=== PATIENT | female | born 1990 | race African-American/Black ===

== ENCOUNTER 2025-01-05 00:30 | Day surgery (SDC) | payer BC, SELFPAY ==
[2024-12-27 14:34] VITALS: BMI 27.8
--- NOTE | 2024-12-27 14:54 | PC.NURSE ---
Report to the Outpatient Waiting Room, entrance under the green pavilion located off [facility], at time _0600 on date _01/05/25 . Planned Procedure Time: _729 .? Time changes happen often and if your time is changed the preop area will call you the afternoon before. - You and your visitor will be asked to self-screen and do not enter if you have any COVID symptoms. Please call surgeon if you need to reschedule. - A mask is optional within the hospital at this time. Patients may have clear liquids (water, carbonated beverages, clear teas, apple juice) until *8 hours* prior to surgery with a maximum of 20 ounces. - No food from midnight until time of surgery and no smoking, or chewing tobacco (or any form of nicotine). No chewing gum, candy or mints. - Infants may have breast milk until 4 hours before surgery, infant formula 6 hours prior to surgery. - Children will be allowed to drink immediately following surgery.? If applicable, please bring a bottle or sippy cup to assist with drinking. Juice, water, soda, and popsicles are readily available.? For infants on formula, please bring formula the day of surgery.? Pacifiers are allowed. Take only the following medications with a SIP of water on the morning of surgery: _Birth control DO NOT STOP ANY OF YOUR OTHER PRESCRIPTION MEDICATIONS PRIOR TO SURGERY EXCEPT THE FOLLOWING Hold all vitamins and supplements for 3 days per anesthesiologist. Medications to discontinue per physician __N/A Date to take last dose Please no make-up, nail central african, hairspray, perfume, deodorant, or body powder the day of surgery.? No jewelry (including any body piercings) or valuables the day of surgery, leave them at home.? Please take a shower or bath the night before, or the morning of, surgery with an antibacterial soap.? Wear comfortable, loose fitting clothing.? Children are encouraged to wear pajamas. - Jewelry must be removed prior to entering the operating room.? Rings and piercings that are not removed may be cut off. - The hospital will not accept responsibility for valuables.? - Please leave all valuables, including medications, at home the day of surgery. If you are going home after surgery, a licensed drivers license examiner must drive you home.? - NO public transportation without another adult if you receive anesthesia. - We recommend that an adult stay with you for 24 hours following discharge. - We also recommend that you do not drive, make important decision, drink alcoholic beverages, or take any drugs that were not prescribed by your health care provider for at least 24 hours after your discharge time. For Pediatric surgeries, we recommend two adults accompany the child home. Follow any additional instructions given to you from your surgeon. Telephone instructions given to __Erasmo and asked if any additional questions and then verbalized understanding. Patient advised to call surgeon office or pre surgery nurse liaison [phone] if any additional questions.
[2025-01-05] VITALS (12 sets, daily range): BP systolic 101–148; BP diastolic 60–86; PULSE 72–109; RESP 12–17; TEMP 36.3–36.5; O2SAT 99–100
--- OUTSIDE RECORDS SUMMARY | 2025-01-05 00:33 | XMS_ITS | Clinical Summary ---
Author Organization [facility] Address [address] [place] [address] Care Team Providers Care Machinist First Class Name Role Phone Jacque Gay Primary Care Provider [phone] Allergies No known active allergies Medications loratadine (CLARITIN) 10 MG tabletIndications: Seasonal allergies Take 1 tablet (10 mg total) by mouth daily. 90 tablet 3 3 Active Cholecalciferol (D3 SUPER STRENGTH) 50 MCG (1999 UT) CapIndications:Low vitamin D level Take 1 capsule by mouth daily. 30 capsule 3 4 Active ibuprofen (MOTRIN) 600 MG tabletIndications: Menstrual cramps Take 1 tablet (600 mg total) by mouth every 6 (six) hours as needed for Pain. 60 tablet 1 4 Active montelukast (SINGULAIR) 10 MG tabletIndications: Seasonal allergies Take 1 tablet (10 mg total) by mouth nightly at bedtime. 90 tablet 3 4 Active busPIRone (BUSPAR) 10 MG tabletIndications: Anxiety Take 1 tablet (10 mg total) by mouth 2 (two) times daily. 60 tablet 2 5 Active lisdexamfetamine (VYVANSE) 40 MG capsuleIndications :Attention deficit hyperactivity disorder (ADHD), combined type Take 1 capsule (40 mg total) by mouth every morning. Please fill Generic Mylan 30 capsule 5 Active lisdexamfetamine (VYVANSE) 30 MG capsuleIndications :Attention deficit hyperactivity disorder (ADHD), combined type Take 1 capsule (30 mg total) by mouth every morning. Please fill Generic Mylan 30 capsule Active Active Problems Problem Noted Date Diagnosed Date Iron deficiency anemia due to chronic blood loss 02/10/2024 Normal [facility] and delivery ([facility]) 09/03/2018 Echogenic bowel of fetus 09/14/2012 Overview (05/20/2019): Overview: IMO Update 07/19/2016 Resolved Problems Problem Noted Date Diagnosed Date Resolved Date Family history of Down syndrome 09/14/2012 11/28/2021 Overview (05/20/2019): Overview: FOB's son Encounters Date Type Department Care Team Description 12/06/2024 Scan MG HEALTH INFO SRVCS Scanned, Doc [facility] 12/02/2024 11:40 AM CDT Office Visit [facility] Family and Sports Medicine [facility] [address] [place] [address] Jacque Gay APNP Medication (Refill meds) 12/02/2024 Travel 10/31/2024 11:34 AM CDT - 10/31/2024 11:59 PM CDT Hospital Encounter [facility] Mammography [facility] [place] [address] Jacque Gay APNP Discharge Disposition: Home or Self Care (Routine Discharge) 10/31/2024 Results Follow-Up [facility] Family [facility] Sports Medicine [facility] [address] [place] [address] Jacque Gay APNP MG SCREENING W SUDHA DEBORAH DIGI 10/31/2024 Travel from Last 3 Months Family History Medical History Relation Comments Diabetes Father Diabetes Paternal Grandmother Relation Status Comments Father Paternal Grandmother Social History Tobacco Use Types Packs/Day Years Used Date Smoking Tobacco: Former Cigarettes 0.3 10 2 008 - 2017 Smokeless Tobacco: Never Tobacco Cessation:Counseling Given: Yes Alcohol Use Standard Drinks/Week Comments Not Currently 0 (1 standard drink = 0.6 oz pur e alcohol) AUDIT-C Answer Date Recorded Frequency of Alcohol Consumption Never 09/03/2018 Average Number of Drinks Not on file 019 Frequency of Binge Drinking Not on file 08/18 PHQ-2 Answer Date Recorded Patient Health Questionnaire-2 Score 2 09/02/2024 Comments No Sex and Gender Information Value Date Recorded Sex Assigned at Female 06/08/2024 11:21 AM BIOMEDICAL TECHNICIAN Legal Sex Female 5:55 PM CDT Gender Identity Female 07/30/2021 1:52 PM CDT Sexual Orientation Straight 07/30/2021 1: 52 PM CDT Last Filed Vital Signs Vital Sign Reading Time Taken Comments Blood Pressure 124/88 12/02/2024 11:53 AM CDT Pulse 91 12/02/2024 11:53 AM CDT Temperature 36.3 C (97.3 F) 09/02/2024 10:23 AM CDT Respiratory Rate 16 12/02/2024 11:53 AM CDT Oxygen Saturation 98% 12/02/2024 11:53 AM CDT Inhaled Oxygen Concentration - - Weight 89.8 kg (198 lb) 12/02/2024 11:53 AM CDT Height 177.8 cm (5' 10) 12/02/2024 11:53 AM CDT Body Mass Index 28.41 12/02/2024 11:53 AM CDT Plan of Treatment Health Maintenance Due Date Last Done Comments Cervical Cancer Screening Pap Smear (Age 30 to 64) Every 3 Years 1989 DTaP, Tdap and Td Vaccines (1 - Tdap) 2008 Hepatitis B Vaccines (1 of 3 - 19+ 3-dose series) 2008 HPV Vaccines (1 - 3-dose SCDM series) 2016 Cervical Cancer Screening Pap with HPV Testing (Age 30 to 64) Every 5 Years 2019 Cervical Cancer Screening with HPV 2019 COVID-19 Vaccine ( season) 2024 11/05/2020 Annual Physical 09/02/2025 09/02/2024, 08/19, 08/05/2022, Additional history exists Hepatitis C Completed 07/31/2021 PHQ-2 (Physician Cahto) Completed 09/02/2024 Meningococcal B Vaccine Aged Out No l onger eligible based on patient's age to complete this topic Meningococcal Vaccine Aged Out No mamta tiffany eligible based on patient's age to complete this topic Pneumococcal Vaccine: Pediatrics (0 to 5 Years) and At-Risk Patients (6 to 49 Years) Aged Out No longer eligible based on patient's age to complete this topic RSV Immunizations Under 20 Months Aged Out No longer eligible based on patient's age to complete this topic Procedures Procedure Name Priority Date/Time Associated Diagnosis Comments MG SCREENING W SUDHA DEBORAH DIGI Routine 10/31/2024 12:04 PM CDT Preop examination Encounter for screening mammogram for malignant neoplasm of breast HEPATITIS C ANTIBODY Routine 07/31/2021 9:00 AM CDT Need for hepatitis C screening test from Last 3 Months or Most Recently Relevant to Health Maintenance Results * MG SCREENING W SUDHA DEBORAH DIGI (10/31/2024 12:04 PM CDT) Anatomical Region Laterality Modality Breast Bilateral Mammography 10/31/2024 12:1 8 PM CDT Impressions 10/31/2024 12:19 PM CDT ===== IMPRESSION: ===== 1. Stable mammographic appearance with no new findings to suggest malignancy in either breast. Assessment: ACR BI-RADS 2 - BENIGN FINDING(S) Recommendation: 1:Routine Screening Bilateral Comments: Ordered By: JACQUE GAY Interpreted By: Zana Alfonso MD, 10/31/2024 12:18 PM Narrative 10/31/2024 12:19 PM CDT [facility] [address] [place] [address] Examination: Digital bilateral screening mammogram with 3D Tomosynthesis Exam Date/Time: 10/31/2024 11:50 AM Reason For Exam: screening/preoperative breast reduction surgery. No prior breast procedures. No personal or family history of breast cancer. No current complaints. Comparison: Mammograms from 06/04/2023 01/27/2022 Technique: Digital screening mammography of both breasts was performed in addition to 3-D Tomosynthesis technique. This study was read with the assistance of a computer-aided detection system. Tissue density: There are scattered areas of fibroglandular density. Findings: Stable overall mass in the upper outer right breast from multiple prior exams. Benign appearing intramammary lymph node on the left. No suspicious interval change in parenchymal pattern from the prior studies. There is no new focal asymmetry, dominant mass lesion, area of skin thickening, or cluster of suspicious appearing calcifications in either breast to suggest malignancy. Jacque [facility] Final Result * HEPATITIS C ANTIBODY (07/31/2021 9:00 AM CDT) HEPATITIS C AB NON-REACTI VE NON-REACT DONATO 07/31/2021 7:12 PM CDT [facility] Comment: ANTIBODIES TO HCV NOT DETECTED. DOES NOT EXCLUDE THE POSSIBILITY OF EXPOSURE TO HCV. 07/31/2021 9:00 AM CDT Jacque Victor Hugo [facility] Final Result [facility] [address] [place] [id number], [id number] from Last 3 Months or Most Recently Relevant to Health Maintenance Insurance [facility] Care Teams Machinist First Class Relationship Specialty Start Date End Date Jacque Gay APNP [address] [place] [address] PCP - General NURSE PRACTITIONER 05/20/19
--- OUTSIDE RECORDS SUMMARY | 2025-01-05 00:33 | XMS_ITS | Clinical Summary ---
Author Organization [facility] Address [address] [place] [address] Care Team Providers Care Crimper Assembler Name Role Phone Jacque Gay APRN, CNP Primary Care Provider Mendez Cantor MD Unavailable Allergies No known active allergies Medications Lisdexamfetamin e Dimesylate 40 MG Capsule Take 40 mg by mouth. 10/14/2023 Active Cholecalciferol (D3 Super Strength) 2000 UNIT Capsule Take 1 Capsule by mouth daily. 09/08/2023 Active ibuprofen (MOTRIN) 600 MG Tablet 09/08/2023 Active montelukast (SINGULAIR) 10 MG Tablet Take 10 mg by mouth every evening. Active Drospirenone-Es tetrol (Nextstellis) 3-14.2 MG Tablet Take 1 Tablet by mouth daily. 01/27/2024 Active Active Problems Problem Noted Date Diagnosed Date Iron deficiency anemia due to chronic blood loss 02/10/2024 Encounters Date Type Department Care Team Description 12/06/2024 9:00 AM CDT Office Visit [facility] [address] [phone] Marcela Park APRN, CNP Iron deficiency anemia due to chronic blood loss (Primary Dx) 12/06/2024 8:45 AM CDT Lab [facility] [address] [address] Lab, Cc [place] Iron deficiency anemia due to chronic blood loss 12/06/2024 Travel from Last 3 Months Immunizations Immunization Administration Dates Next Due Covid-19 Vaccine, Vector-nr, Rs-ad26, Pf, 0.5 Ml ([employer]) 11/05/2020 Family History Medical History Relation Name Comments Diabetes Father Relation Name Status Comments Father Social History Tobacco Use Types Packs/Day Years Used Date Smoking Tobacco: Former Cigarettes 0.5 10 2017 Smokeless Tobacco: Never Tobacco Cessation:Counseling Given: Not Answered Alcohol Use Standard Drinks/Week Comments Not Currently 0 (1 standard drink = 0.6 oz pur e alcohol) Comments Unknown Sex and Gender Information Value Date Recorded Sex Assigned at Not on file Legal Sex Female 2:26 PM BOOK RETAILER Gender Identity Not on file Sexual Orientation Not on file Last Filed Vital Signs Vital Sign Reading Time Taken Comments Blood Pressure 118/74 12/06/2024 9:08 AM CDT Pulse 103 12/06/2024 9:08 AM CDT Temperature 36.8 C (98.2 F) 12/06/2024 9:08 AM CDT Respiratory Rate 20 12/06/2024 9:08 AM CDT Oxygen Saturation 97% 12/06/2024 9:08 AM CDT Inhaled Oxygen Concentration - - Weight 92.9 kg (204 lb 14.4 oz) 12/06/2024 9:08 AM CDT Height 177.8 cm (5' 10) 12/06/2024 9:08 AM CDT Body Mass Index 29.4 12/06/2024 9:08 AM CDT Plan of Treatment Upcoming Encounters Date Type Department Care Team (Late st Contact Info) Description 04/04/2025 8:30 AM BOOK RETAILER Lab [facility] [address] [phone] Lab, Cc [facility] 04/04/2025 8:45 AM BOOK RETAILER Office Visit [facility] [address] [phone] Mendez Cantor MD [address] [place] [address] [phone] Health Maintenance Due Date Last Done Comments TdaP Immunization 1989 Hepatitis B Immunization (1 of 3 - 19+ 3-dose series) 2008 Pap Smear 2010 Human Papillomavirus (HPV) Immunization (1 - 3-dose SCDM series) 2016 Cervical Cancer Screening (CCS) 2019 HPV/Cotest 2019 Influenza Immunization (#1) 2024 SARS-COV-2 Immunization ( season) 2024 11/05/2020 Respiratory Syncytial Virus (RSV) Immunization (Adult) (1 - 1-dose 75+ series) 2064 Hepatitis C Virus (HCV) Screening Completed 022 Meningococcal Immunization (ACWY) Aged Out No longer eligible based on patient's age to complete this topic Pneumococcal Immunization Combined Aged Out No longer eligible based on patient's age to complete this topic Rotavirus Immunization Aged Out No lo nger eligible based on patient's age to complete this topic Procedures Procedure Name Priority Date/Time Associated Diagnosis Comments CBC WITH AUTO DIFF OH Routine 12/06/2024 8:55 AM CDT CMP (COMPREHENSIVE METABOLIC PANEL) Routine 12/06/2024 8:55 AM CDT Iron deficiency anemia due to chronic blood loss IRON W/ IRON BINDING CAPACITY OH Routine 12/06/2024 8:55 AM CDT Iron deficiency anemia due to chronic blood loss FERRITIN Routine 12/06/2024 8:55 AM CDT Iron deficiency anemia due to chronic blood loss from Last 3 Months Results * IRON W/ IRON BINDING CAPACITY OH (12/06/2024 8:55 AM CDT) IRON 78 50 - 212 ug/dL [facility] UIBC 236 155 - 355 ug/dL [facility] [employer] TIBC 314 261 - 478 ug/dl [facility] % Saturation 25 20 - 50 % [facility] 12/06/2024 8:55 AM CDT Narrative [facility] - 12/06/2024 9:39 AM CDT Release to patient->Immediate Marcela Park SINGE MACHINE OPERATOR, FRAME STRIPPER LAB SEND OUTS Final Result [facility] [place] [place] [address] [place] [address], * (ABNORMAL) CBC WITH AUTO DIFF [place] (12/06/2024 8:55 AM CDT) WBC 5.7 4.0 - 10.0 10*3/uL [facility] HGB 15.2 11.2 - 15.7 g/dL [facility] HCT 45.0(H) 34.1 - 44.9 % [facility] PLT 327 163 - 369 10*3/uL [facility] MPV 9.4 9.4 - 12.4 fL [facility] RBC 4.91 3.93 - 5.22 10*6/uL [facility] MCV 92 79 - 95 fL [facility] MCH 31.0 25.6 - 32.2 pg [facility] MCHC 33.8 32.2 - 36.5 g/dL [facility] RDW 12.3 11.6 - 14.4 % [facility] Neutrophils % 51.6 36.0 - 66.0 % [facility] Lymphocytes % 38.8 19.0 - 40.0 % [facility] Monocytes % 6.5 4.1 - 12.1 % [facility] Eosinophils % 1.6 0.0 - 3.5 % [facility] Basophils % 1.1(H) 0.0 - 1.0 % [facility] Absolute Neutrophils 2.9 1.4 - 6.6 10*3/uL [facility] Absolute Lymphocytes 2.2 0.8 - 4.0 10*3/uL [facility] Absolute Monocytes 0.4 0.2 - 1.2 10*3/uL [facility] Absolute Eosinophils 0.1 0.0 - 0.4 10*3/uL [facility] Absolute Basophils 0.1 0.0 - 0.1 10*3/uL [facility] 12/06/2024 8:55 AM CDT Marcela Park APRN, CNP LAB SEND OUTS Final Result Performing Organization Address City/[facility]/ZIP Co de Phone Number [facility] [address] [address], [place] [phone] * FERRITIN (12/06/2024 8:55 AM CDT) Ferritin 42 11 - 307 ng/mL [facility] Blood 12/06/2024 8:55 AM CDT Narrative [facility] 12/06/2024 2:39 PM CDT Release to patient->Immediate Marcela Park APRN, ISAC CHEMISTRY ORDERABLES Final Result Performing Organization Address [facility] de Phone Number [facility] [employer] [employer] Cancer Care [address] [address], [place] [phone] * (ABNORMAL) CMP (COMPREHENSIVE METABOLIC PANEL) (12/06/2024 8:55 AM CDT) Glucose 100 70 - 105 mg/dL [facility] Blood Urea Nitrogen 12 7 - 25 mg/dL [facility] Creatinine 0.7 0.6 - 1.2 mg/dL [facility] Sodium 139 136 - 145 mEq/L [facility] Potassium 3.9 3.5 - 5.1 mEq/L [facility] Chloride 104 98 - 107 mEq/L [facility] Bicarbonate 29 21 - 31 mEq/L [facility] Total Bilirubin 0.4 0.3 - 1.0 mg/dL [facility] Alk. Phosphatase 35 34 - 104 U/L [facility] Aspartate Aminotransferase 12(L) 13 - 39 U/L [facility] Alanine Aminotransferase 9 7 - 52 U/L [facility] Total Protein 7.2 6.4 - 8.9 g/dL [facility] Albumin 4.5 3.5 - 5.7 g/dL [facility] Calcium 10.0 8.6 - 10.3 mg/dL [facility] Anion Gap 9.9 7.0 - 15.0 mEq/L [facility] Globulin 2.7 2.0 - 3.5 g/dL [facility] EGFR 115 >60 ml/min/1. 73m2 [facility] Comment: This eGFR is calculated using 2020 CKD-EPI Creatinine equation without race modifier based on the NKF-ASN task force recommendations Equation: iDST=736*min(SCr/k,1)a*max(SCr/k,1)-1.200*0.9938Age*1.012 (if female), where SCr is serum creatinine, k is 0.7 for females and 0.9 for males, and a is -0.241 for females and -0.302 for males Blood 12/06/2024 8:55 AM CDT Narrative [facility] - 12/06/2024 9:39 AM CDT Release to patient->Immediate IS THE PATIENT REQUIRED TO BE FASTING FOR 8 HOURS?->No Marcela Park APRN, FRAME STRIPPER CHEMISTRY ORDERABLES Final Result [facility] [place] [address], from Last 3 Months Insurance [employer] on file [facility] Care Teams Crimper Assembler Relationship Specialty Start Date End Date Jacque Gay APRN, FRAME STRIPPER [address] [place] [address] PCP - General Certified Nurse Practitioner 09/18/23 Mendez Cantor MD [address] [place], [place] [phone] Consulting Physician Oncology 09/18/23
--- OUTSIDE RECORDS SUMMARY | 2025-01-05 00:33 | XMS_ITS | Encounter Summary ---
Author Organization [facility] Address [facility] [place] [address] Care Team Providers Care Data Processing Operator Name Role Phone None, Provider Primary Care Provider Jacque Harris Primary Care Provider [phone] Encounter Details Date Type Department Care Team (Late st Contact Info) Description 09/18/2018 Hospital Follow-up Call [facility] [place] [address] Allyson Alanis, RN Social History Tobacco Use Types Packs/Day Years Used Date Smoking Tobacco: Never Smokeless Tobacco: Never Alcohol Use Standard Drinks/Week Comments No 0 (1 standard drink = 0.6 oz pur e alcohol) AUDIT-C Answer Date Recorded Frequency of Alcohol Consumption Never 09/03/2018 Average Number of Drinks Not on file 019 Frequency of Binge Drinking Not on file 08/18 Comments No Sex and Gender Information Value Date Recorded Sex Assigned at Female 06/08/2024 11:21 AM GOLD PLATER Legal Sex Female 5:55 PM CDT Gender Identity Female 07/30/2021 1:52 PM CDT Sexual Orientation Straight 07/30/2021 1: 52 PM CDT documented as of this encounter Functional Status * RETIRED Are you deaf or do you have serious difficulty hearing Answer Date of Assessment Author Status No 09/04/2018 12:47 AM CDT Acti ve * RETIRED Are you blind or do you have serious difficulty seeing, even when wearing glasses? Answer Date of Assessment Author Status No 09/04/2018 12:47 AM CDT Acti ve * Do you have serious difficulty walking or climbing stairs? Answer Date of Assessment Author Status No 09/04/2018 12:47 AM Salud Van RN Active * Do you have difficulty dressing or bathing? Answer Date of Assessment Author Status No 09/04/2018 12:47 AM Salud Van RN Active * Because of a physical, mental, or emotional condition, do you have difficulty doing errands alone such as visiting a doctor's office or shopping? Answer Date of Assessment Author Status No 09/04/2018 12:47 AM Salud Van RN Active documented as of this encounter Mental Status * Because of a physical, mental, or emotional condition, do you have serious difficulty concentrating, remembering, or making decisions? Answer Entry Date Author Status No 09/04/2018 12:47 AM Salud Van RN Active documented in this encounter Plan of Treatment Not on file documented as of this encounter Visit Diagnoses Not on filedocumented in this encounter Care Teams Data Processing Operator Relationship Specialty Start Date End Date None, Provider, PCP - General 08/13/18 05/19/19 Jacque Gay APNP [address] [place] [address] PCP - General NURSE PRACTITIONER 05/20/19 documented as of this encounter
--- OUTSIDE RECORDS SUMMARY | 2025-01-05 00:33 | XMS_ITS | Encounter Summary ---
Author Organization [facility] - [facility] Address [address] [place] [address] Care Team Providers Care [employer] Retailer Sales Consultant Name Role Phone Jacque Gay Primary Care Provider [phone] Encounter Details Date Type Department Care Team (Late st Contact Info) Description 01/04/2024 FanXTt Message Enc [facility] Medical [facility] Family and Sports Medicine - [place] [address] [facility], [facility] Provider reschedule Social History Tobacco Use Types Packs/Day Years Used Date Smoking Tobacco: Former Cigarettes 0.3 10 2 2017 Smokeless Tobacco: Never Alcohol Use Standard Drinks/Week Comments No 0 (1 standard drink = 0.6 oz pur e alcohol) AUDIT-C Answer Date Recorded Frequency of Alcohol Consumption Never 09/03/2018 Average Number of Drinks Not on file 019 Frequency of Binge Drinking Not on file 08/18 PHQ-2 Answer Date Recorded Patient Health Questionnaire-2 Score 0 08/05/2022 Comments No Sex and Gender Information Value Date Recorded Sex Assigned at Female 06/08/2024 11:21 AM FLAP PRESSER Legal Sex Female 5:55 PM CDT Gender [...] Author Status No 09/04/2018 12:47 AM CDT Salud Peres RN Active * Do you have difficulty dressing or bathing? Answer Date of Assessment Author Status No 09/04/2018 12:47 AM CDT Salud Peres RN Active * Because of a physical, mental, or emotional condition, do you have difficulty doing errands alone such as visiting a doctor's office or shopping? Answer Date of Assessment Author Status No 09/04/2018 12:47 AM CDT Salud Peres RN Active documented as of this encounter Mental Status * Because of a physical, mental, or emotional condition, do you have serious difficulty concentrating, remembering, or making decisions? Answer Entry Date Author Status No 09/04/2018 12:47 AM CDT Salud Peres RN Active documented in this encounter Plan of Treatment Not on file documented as of this encounter Visit Diagnoses Not on filedocumented in this encounter Additional Health Concerns Assessment Noted Time PHQ-9 Depression Total Score: 2 08/06/19 23 9:27 AM CDT documented as of this encounter Care Teams [employer] Retailer Sales Consultant Relationship Specialty Start Date End Date Jacque Gay APNP [address] [place] [id number] PCP - General NURSE PRACTITIONER 05/20/19 documented as of this encounter
--- OUTSIDE RECORDS SUMMARY | 2025-01-05 00:33 | XMS_ITS | Encounter Summary ---
Author Organization [facility] Address [address] [place] [id number] Care Team Providers Care Manager Account Management Name Role Phone None, Provider Primary Care Provider Jacque Harris Primary Care Provider [phone] Reason for Visit * Reason Onset Date Comments Post-hospital Follow-up 09/21/2018 Encounter Details Date Type Department Care Team (Late st Contact Info) Description 09/21/2018 Hospital Follow-up Call [facility] [place] [address] Caity Banegas RN Post-hospital Follow-up Social History Tobacco Use Types Packs/Day Years [...] Sex Assigned at Female 06/08/2024 11:21 AM CONTENT SPECIALIST Legal Sex Female 5:55 PM CDT Gender [...] Assessment Author Status No 09/04/2018 12:47 AM AMILCART Salud Peres RN Active * Do you [...] on filedocumented in this encounter Care Teams Manager Account Management Relationship Specialty Start Date End Date None, Provider, PCP - General 08/13/18 05/19/19 Jacque Gay APNP [address] [place] [address] PCP - General NURSE PRACTITIONER 05/20/19 documented as of this encounter
--- NOTE | 2025-01-05 06:44 | P.HPUP_ITS ---
History and Physical Update Update Date/Time: 01/05/25 06:44 Patient seen and examined in pre-operative holding area. No interval change in medical history or symptoms. Patient remembers previous discussion of benefits and alternatives to procedure. Continues to desire to proceed with bilateral breast reduction . I reviewed the risks including but not limited to bleeding ,infection, asymmetry, undesireable cosmetic appearance, partial/total skin/nipple loss, no change or worsening of symptoms, change in sensation. I discussed the possible use of assistants and their level of participation in the case. Patient stated understanding and signed the consent form wishing to pr oceed
--- NOTE | 2025-01-05 06:45 | P.OP_ITS ---
Procedure Note - Detailed Date of Procedure 01/05/25 Pre-op Diagnosis hypertrophy of breasts Post-op Diagnosis Same Procedure Performed b/l breast reduction Surgeon Oralia Dao MD Slitting And Shipping Supervisor magnus carlson pa-c Anesthesia MAC Description of Procedure Patient was seen in the preoperative holding area where the breasts were marked for an inferior pedicle Solis pattern reduction. Consent form was signed. Patient was taken back to the operating room and placed on the table in the supine position. Time-out was performed with Anesthesia, surgeon, and staff agreeing on patient's name, site, surgery to be performed. SCDs were placed on the lower extremities and inflated. After general anesthesia was administered the breasts were prepped and draped in the usual sterile fashion. I took my attention to the right breast where I used a saline moistened lap pad and Chary clamp to create a breast tourniquet. The 38 mm nipple Sizer was used to circumscribe the nipple-areolar complex. I proceeded with making my other skin incisions and de epithelializing a 9 cm wide inferior pedicle. I elevated skin flaps and Shawn's plane with Bovie cautery down to the chest wall. I proceeded with resection of 1088g of tissue from the right breast. I irrigated with normal saline. I plicated the pedicle with 2-0 Vicryl suture. 2-0 Prolene was used to secure the T-junction. 3-0 Vicryl was used for dermal closure. The nipple was brought out 5 cm above the inframammary fold the most prominent portion of the breast at the breast midline and secured with 3-0 Vicryl suture for dermis and 4-0 Monocryl for subcuticular closure. I took my attention to the left breast where the same procedure was performed.I used a saline moistened lap pad and Chary clamp to create a breast tourniquet. The 38 mm nipple Sizer was used to circumscribe the nipple-areolar complex. I proceeded with making my other skin incisions and de epithelializing a 9 cm wide inferior pedicle. I elevated skin flaps and Shawn's plane with Bovie cautery down to the chest wall. I proceeded with resection of 1267 g of tissue from the left breast. This appeared to provide reasonable symmetry to the reduced right breast. I irrigated with normal saline. I plicated the pedicle with 2-0 Vicryl suture. 2-0 Prolene was used to secure the T-junction. 3-0 Vicryl was used for dermal closure. The nipple was brought out 5 cm above the inframammary fold the most prominent portion of the breast at the breast midline and secured with 3-0 Vicryl suture for dermis and 4-0 Monocryl for subcuticular closure. The skin flaps and nipples appeared viable with good cap refill. I injected 20 cc of 1% lidocaine with epinephrine and 0.5% Marcaine plain along the inframammary fold and anterior axillary line of each breast. A dressing of Mastisol, Steri-Strips, 4 x 4, ABDs and a breast binder was applied. The patient was awakened from anesthesia and transferred to the recovery room in stable condition. Complications: None Estimated blood loss: 80 cc Disposition: Patient tolerated the procedure well and will go home later today Magnus Carlson PA-C was essential for positioning, retraction, closure and dressing placement G Billing Surgery - Charge Forward: Surgery Billing ([id number] same for magnus adding )
--- NOTE | 2025-01-05 06:56 | WPDANESEPPF ---
Anes - Initial Pre Proc Eval Procedure: Operation Date: 01/05/25 07:30 Proposed Procedures p Bilateral Breast Reduction - Oralia Dao MD Date/Time: 01/05/25 06:56 Surgeon: Oralia Dao MD Pre Op Diagnosis: hypertrophy of breasts Patient Data Age: 34 Gender: F Height: 1.8 m Weight: 90.72 kg Allergies Allergy/AdvReac Type Severity Reaction Status Date / Time No Known Allergies Allergy Verified 12/27/24 14:24 Home Medications ?Medication ?Instructions ?Recorded ?Confirmed ?Type cholecalciferol (vitamin D3) 50 50 mcg PO DAILY 12/27/24 12/27/24 History mcg (2,000 unit) capsule (D3-1999) drospirenone 3 mg-estetrol 14.2 mg See Rx Instructions PO .COMPLEX 12/27/24 12/27/24 History (28) tablet (Nextstellis) lisdexamfetamine 30 mg capsule 30 mg PO DAILY 12/27/24 12/27/24 History (Vyvanse) Patient hx anesthesia problems: none Family hx anesthesia problems: none Results Review: All pre-operative results and documents have been reviewed as part of the pre-operative evaluation. [facility] Social History Social History Smoking status: Never smoker Tobacco type: cigarettes Alcohol intake: never Alcohol use details: Very Rare Substance use: never Anes - Eval Final PreProcedure Day of Procedure 01/05/25 06:56 Patient weight: overweight Lungs: normal air movement Airway: Mallampati scale class II Neurological: alert and oriented Last oral intake: >/= 8 hours ASA classification: II Emergent: no Anesthetic plan: proceed Anesthesia type and monitoring: general ETT and standard monitoring Results Review: All pre-operative results and documents have been reviewed as part of the pre-operative evaluation. Ex smoker, quit 2018, pt smokes THC several times weekly, none this am. Informed Consent: The patient's anesthetic plan and its attendant risks and benefits were discussed with the patient/family/POA. Questions were solicited and answers provided to the satisfaction of the patient/family/POA.
[2025-01-05] MEDS: LACTATED RINGERS 1,000 ML 30 ML IV CONT ×2 (07:00→10:06)
[2025-01-05] MEDS: ACETAMINOPHEN 500 MG TABLET 1000 MG PO (07:00)
[2025-01-05] MEDS: ceFAZolin 2 GM in SODIUM CHLORIDE 0.9% IV 50 ML 100 ML IVPB (07:28)
[2025-01-05 07:29] LABS: BEDSIDEPREGUCG Negative (Negative)
[2025-01-05] MEDS: LIDO 1%/EPINEPHRINE 1:100,000 50 ML VIAL 30 ML INFILTRATE (07:55)
--- NOTE | 2025-01-05 08:28 | S_PTH ---
PATIENT: Erasmo Clay LOC: [facility] U#:[id number] AGE/SX: 34/F ROOM: RE01/05/[address]: Oralia Dao MD : 1990 BED: DIS: 01/05/2025 SPEC #: [id number] RECD: 01/05/25 10:01 STATUS: RACHNA MASON #: [id number] LUCERO: 01/05/25 08:[address]: Oralia Dao DEPT: [facility] Surgical RECD BY: Ana Maria Colvin ENTERED: 01/05/25 10:02 SP TYPE: Surgical OTHR DR: Jacque Gay, CITY DESIGNER Tissues: A - Breast Reduction B - Breast Reduction Procedures: Hematoxylin and Eosin Stain Gross and Microscopic Level 4
[2025-01-05] MEDS: ONDANSETRON INJ 4 MG/2 ML VIAL IV PUSH (11:10)
[2025-01-05] MEDS: oxyCODONE HCL (*CRX) 5 MG TAB IR PO (12:16)
== END 2025-01-05 13:21 | disposition home or self-care (01) ==
PROVIDERS: Physician Assistant Surgical; PCP Nurse Practitioner; Visit Provider Plastic Surgery
PROC: 0HBV0ZZ Excision of Bilateral Breast, Open Approach (ICD-10-PCS; CPT 19318; principal; 2025-01-05 07:30)
DX: N62 Hypertrophy of breast (principal); F12.90 Cannabis use, unspecified, uncomplicated; Z87.891 Personal history of nicotine dependence
CPT/HCPCS: 19318; 88305; J0690; A9270; J1100; J1171; J2004; J2250; J2405; J2704; J3010; J7120